=== PATIENT | female | born 2000 | race Caucasian/White ===

== ENCOUNTER 2023-02-20 20:54 | Emergency (ER) | payer OTHER, SELFPAY ==
[2023-02-20 20:55] VITALS: BP 148/96; PULSE 105; RESP 20; TEMP 36.5; O2SAT 99
[2023-02-20 21:24] LABS: Basophils Absolute Auto 0.1 K/mm3 (0.0-0.1); Basophils Percent Auto 0.4 % (0.2-1.2); Eosinophils Absolute Auto 0.2 K/mm3 (0-0.3); Eosinophils Percent Auto 1.1 % (0-4.4); Hematocrit 41.6 % (37.0-47.0); Hemoglobin 13.4 g/dL (12.0-15.0); Immature Granulocyte Absolute 0.05 K/mm3 (0.00-0.031); Immature Granulocyte Percent A 0.4 % (0-0.5); Lymphocytes Absolute Auto 2.79 K/mm3 (0.9-3.2); Lymphocytes Percent Auto 21.2 % (18.3-44.2); Mean Corpuscular HGB Conc 32.2 g/dl (32-36); Mean Corpuscular Hemoglobin 28.1 pg (26-34); Mean Corpuscular Volume 87.2 fl (80-100); Monocytes Absolute Auto 0.7 K/mm3 (0.1-0.6); Monocytes Percent Auto 5.6 % (2.6-8.5); Neutrophils Absolute Auto 9.4 K/mm3 (1.3-6.7); Neutrophils Percent Auto 71.3 % (45.5-73.1); Platelet Count Result 324 k/mm3 (150-375); Red Blood Count 4.77 M/mm3 (4.2-5.4); Red Cell Distribution Width 13.6 % (11.5-14.5); White Blood Count 13.1 K/mm3 (4.5-10.0)
[2023-02-20 21:34] LABS: Ethanol 84 mg/dL (<10)
[2023-02-20 21:35] LABS: Alanine Aminotransferase 20 U/L (6-35); Albumin Level 4.9 g/dL (3.5-5.1); Alkaline Phosphatase 64 U/L (38-126); Anion Gap 14 mmol/L (8-16); Aspartate Amino Transferase 26 U/L (14-36); Bilirubin,Total 0.3 mg/dL (0.2-1.3); Blood Urea Nitrogen 11 mg/dL (7-17); Calcium 9.8 mg/dL (8.4-10.2); Carbon Dioxide 22 mmol/L (22-30); Chloride 106 mmol/L (98-107); Estimated CRCL calculation 92 ml/min; Estimated Glomerular Filt Rate > 60; Glucose 106 mg/dL (65-110); Potassium 3.5 mmol/L (3.4-5.0); Sodium 142 mmol/L (137-145)
[2023-02-20 21:46] LABS: Appearance Urine Turbid (Clear); Bacteria Urine 4+ /hpf; Bilirubin Urine Negative (Negative); Blood Urine Negative (Negative); Color Urine Yellow (Yellow); Glucose Urine UA Negative (Negative); Ketones Urine Negative (Negative); Leukocyte Esterase Ur Trace LEU/UL (Negative); Need Manual Microscopic Reviewed; Nitrate Urine Negative (Negative); Protein Urine Negative (Negative); Specific Grav Ur 1.009 (1.001-1.035); Squamous Epithelial Cell Urine Many /hpf (Few); Urobilinogen Urine 0.2 mg/dL (<2.0); WBC Urine 21-50 /hpf; pH Urine 5.5 (5.0-9.0)
[2023-02-20 21:47] LABS: Add Urine Microscopic? YES
[2023-02-20 21:54] LABS: Amphetamine Screen Urine Negative (Negative); Barbiturate Screen Urine Negative (Negative); Benzodiazepines Screen Urine Negative (Negative); Cannabinoid Screen Urine Negative (Negative); Cocaine Screen Urine Negative (Negative); Methadone Screen Urine Negative (Negative); Opiate Screen Urine Negative (Negative); Phencyclidine Screen Urine Negative (Negative)
[2023-02-20 22:02] LABS: SARS-CoV-2 RNA PCR Negative (Negative)
--- NOTE | 2023-02-20 22:20 | ED.GENADULT ---
HPI - General Adult General Chief complaint: Psychiatric Symptoms Stated complaint: SI Time Seen by Provider: 02/20/23 21:45 History of Present Illness HPI narrative: the patient is a 22-year-old who presents emergency department with chief complaint of needs to talk to someone. The patient reports that she just broke up with her boyfriend and has been depressed thoughts and has had thoughts of harm herself. The patient did not have a specific plan reports that she is very stressed by the events that have occurred. The patient reports that she had one Valeria this evening Related Data Allergies Allergy/AdvReac Type Severity Reaction Status Date / Time No Known Allergies Allergy Verified 02/20/23 21:46 Review of Systems Review of Systems: A 10 system review of systems was completed on the patient and is negative except for what is stated in the HPI. Nursing and ancillary documentation was reviewed. [facility] Social History Social History Substance use type: does not use Exam Narrative: GENERAL: Well-appearing, well-nourished, and in no acute distress. HEAD: Normocephalic, atraumatic. EYES: PERRLA and EOMI. ENT: Nares clear, no rhinorrhea or epistaxis. Mucous membranes moist. NECK: Supple. CHEST: Clear to auscultation. No respiratory distress. HEART: Regular rate and rhythm. No murmur heard. Normal peripheral pulses. ABDOMEN: Soft, nontender, nondistended, normal active bowel sounds. EXTREMITIES: Normal range of motion. No edema. SKIN: Warm, dry, no rash. NEURO: No focal deficits. Alert and oriented x3. PSYCH: Normal mood and affect. Course Vital Signs Vital signs: Vital Signs Temperature 36.5 C 02/20/23 20:55 Pulse Rate 105 H 02/20/23 20:55 Respiratory Rate 20 02/20/23 20:55 Blood Pressure 148/96 H 02/20/23 20:55 Pulse Oximetry 99 02/20/23 20:55 Oxygen Delivery Room Air 02/20/23 20:55 Temperature 36.5 C 02/20/23 20:55 Pulse Rate 105 H 02/20/23 20:55 Respiratory Rate 20 02/20/23 20:55 Blood Pressure 148/96 H 02/20/23 20:55 Pulse Oximetry 99 02/20/23 20:55 Oxygen Delivery Room Air 02/20/23 20:55 Medical Decision Making MDM Narrative Medical decision making narrative: differential diagnosis includes stress reaction, suicidal ideation, depression laboratory studies were obtained on the patient which were within normal limits patient is medically clear for psychiatric evaluation referral transfer and admission patient was seen by crisis was cleared for home discharge with safety plan Vital Signs Vital Signs: Vital Signs Temperature 36.5 C 02/20/23 20:55 Pulse Rate 105 H 02/20/23 20:55 Respiratory Rate 20 02/20/23 20:55 Blood Pressure 148/96 H 02/20/23 20:55 Pulse Oximetry 99 02/20/23 20:55 Oxygen Delivery Room Air 02/20/23 20:55 Temperature 36.5 C 02/20/23 20:55 Pulse Rate 105 H 02/20/23 20:55 Respiratory Rate 20 02/20/23 20:55 Blood Pressure 148/96 H 02/20/23 20:55 Pulse Oximetry 99 02/20/23 20:55 Oxygen Delivery Room Air 02/20/23 20:55 Lab Data 02/20/23 21:12 02/20/23 21:12 Labs: Lab Results 02/20/23 Range/Units 21:12 WBC 13.1 H (4.5-10.0) K/mm3 RBC 4.77 (4.2-5.4) M/mm3 Hgb 13.4 (12.0-15.0) g/dL Hct 41.6 (37.0-47.0) % MCV 87.2 (80-100) fl MCH 28.1 (26-34) pg MCHC 32.2 (32-36) g/dl RDW 13.6 (11.5-14.5) % Plt Count 324 (150-375) k/mm3 MPV 11.0 H (7.4-10.4) fl Immature Gran % (Auto) 0.4 (0-0.5) % Neut % (Auto) 71.3 (45.5-73.1) % Lymph % (Auto) 21.2 (18.3-44.2) % [place] % (Auto) 5.6 (2.6-8.5) % Eos % (Auto) 1.1 (0-4.4) % Baso % (Auto) 0.4 (0.2-1.2) % Lymph # (Auto) 2.79 (0.9-3.2) K/mm3 [place] # (Auto) 0.7 H (0.1-0.6) K/mm3 Eos # (Auto) 0.2 (0-0.3) K/mm3 Baso # (Auto) 0.1 (0.0-0.1) K/mm3 Abs Immat Gran (auto) 0.05 H (0.00-0
[2023-02-20] MEDS: CEPHALEXIN 500 MG CAPSULE PO (22:53)
--- NOTE | 2023-02-20 23:04 | PC.NURSE ---
this RN contacted [facility] for pt evaluation. [facility] declined pt evaluation due to pt not having state coverage. This RN contacted [facility].
== END 2023-02-21 01:30 | disposition home or self-care (01) ==
PROVIDERS: Emergency Provider Emergency Medicine
DX: F32.A Depression, unspecified (principal); N39.0 Urinary tract infection, site not specified; Z11.52 Encounter for screening for COVID-19
CPT/HCPCS: 36415; 80053; 80307; 81001; 81025; 84443; 85025; 87086; 87088; 87635; 99284; A9270